=== PATIENT | female | born 1985 | race Caucasian/White ===

== ENCOUNTER 2021-01-29 17:35 | Outpatient (CLI) | payer SELFPAY ==
[~2021-01-29] VITALS: Ht 165.1 cm; Wt 72.0 kg
[2021-01-29 17:45] VITALS: BP 132/73
[2021-01-29] MEDS ORDERED: PRENTAB9 PO (17:59)
[2021-01-29 18:01] VITALS: BP 132/73
[2021-01-29 18:40] VITALS: BP 122/71
[2021-01-29 19:08] LABS: HEMATOCRIT 35.3 % (36.0-47.0); HEMOGLOBIN 12.1 g/dl (12.0-15.5); MEAN CORPUSCULAR HEMOGLOBIN 32.4 pg (27.0-33.0); MEAN CORPUSCULAR HGB CONC 34.3 g/dl (32.0-36.5); MEAN CORPUSCULAR VOLUME 94.4 fl (80.0-96.0); PLATELET COUNT, AUTOMATED 183 10^3/uL (150-450); RED BLOOD COUNT 3.74 10^6/uL (4.00-5.40); WHITE BLOOD COUNT 10.2 10^3/uL (4.0-10.0)
[2021-01-29 19:19] VITALS: BP 123/69
[2021-01-29 19:25] LABS: CREATININE,RANDOM URINE 83.9 MG/DL; TOTAL PROTEIN,RANDOM URINE 12.8 MG/DL (0.0-12.0)
[2021-01-29 20:08] LABS: ALT/SGPT 21 U/L (12-78); BILIRUBIN,TOTAL 0.4 MG/DL (0.2-1.0); BLOOD UREA NITROGEN 10 MG/DL (7-18); CALCIUM LEVEL 8.9 MG/DL (8.5-10.1); CARBON DIOXIDE LEVEL 23 MEQ/L (21-32); CHLORIDE LEVEL 107 MEQ/L (98-107); CREATININE FOR GFR 0.54 MG/DL (0.55-1.30); GLOMERULAR FILTRATION RATE > 60.0 (>60); GLUCOSE, FASTING 86 MG/DL (70-100); LDH LACTATE DEHYDROGENASE 201 U/L (84-246); POTASSIUM SERUM 3.7 MEQ/L (3.5-5.1); SODIUM LEVEL 137 MEQ/L (136-145); TOTAL PROTEIN 6.5 GM/DL (6.4-8.2); URIC ACID 5.3 MG/DL (2.6-6.0)
[2021-01-29 21:01] VITALS: BP 120/62
--- NOTE | 2021-01-30 01:09 | IPNPDOC ---
Obstetrical Progress Note Date of Service Jan 29, 2021 Subjective 36-year-old 114 at 37+0 weeks gestation. Resents from the office after exhibiting high blood pressure during her appointment. . She denies headache, visual changes, right upper quadrant pain, shortness of breath or chest pain. She reports regular movement. . She denies vaginal bleeding, loss of fluid or painful uterine contractions. She reports an occasional pain ful contractions, but mostly Jerry Avery nonpainful.. Of note, she was also noted to have a fetus in the breech presentation. She is interested in an external cephalic version. She has a history of 1 prior low transverse section for nonreassuring heart rate tracing, which was her last . Her previous pregnancies were delivered via . She is [place]. Vital Signs Date Time Temp Pulse Resp B/P (MAP) Pulse Ox O2 Delivery O2 Flow Rate FiO2 01/29/21 21:01 85 120/62 (81) 01/29/21 19:19 99.1 92 18 123/69 (87) 01/29/21 18:40 93 122/71 (88) 01/29/21 18:01 99.3 82 18 132/73 (92) 01/29/21 17:45 132/73 (92) Laboratory Tests 01/29/21 18:22: Urine Random Creatinine 83.9, Urine Random Total Protein 12.8H 01/29/21 18:32: White Blood Count 10.2H, Red Blood Count 3.74L, Hemoglobin 12.1, Hematocrit 35.3L, Mean Corpuscular Volume 94.4, Mean Corpuscular Hemoglobin 32.4, Mean Corpuscular Hemoglobin Concent 34.3, Red Cell Distribution Width 13.9, Platelet Count 183, Nucleated Red Blood Cells % (auto) 0.0, Sodium Level 137, Potassium Level 3.7, Chloride Level 107, Carbon Dioxide Level 23, Anion Gap 7L, Blood Urea Nitrogen 10, Creatinine 0.54L, Glomerular Filtration Rate > 60.0, Fasting Glucose 86, Uric Acid 5.3, Calcium Level 8.9, Total Bilirubin 0.4, Aspartate Amino Transf (AST/SGOT) 19, Alanine Aminotransferase (ALT/SGPT) 21, Alkaline Phosphatase 158H, Lactate Dehydrogenase 201, Total Protein 6.5, Albumin 3.0L, Albumin/Globulin Ratio 0.9L EFM: Cat I / Reactive [place]: irregular contractions. US,[place]: breech, MVP 5.6cm. A/P: 36-year-old G6, P4 at 37+0 weeks who does not yet meet criteria for gestational hypertension/preeclampsia. Maternal / status is reassuring. Several serial blood pressures were normotensive and she is asymptomatic. Given that she has a baby in the breech presentation, an external cephalic version was offered. The risks, benefits, indications and alternatives have been reviewed with the patient and her . However the labor and delivery unit is too busy to perform this elective procedure and she would rather return in the near future than wait. She was scheduled for is 02/01/[address] Kaur. Third trimester precautions were reviewed; preeclampsia precautions were highlighted during counseling. Marlin Doan DO Objective Vital Signs Date Time Temp Pulse Resp B/P (MAP) Pulse Ox O2 Delivery O2 Flow Rate FiO2 01/29/21 21:01 85 120/62 (81) 01/29/21 19:19 99.1 18 FLORESITA DOAN DO Jan 30, 2021 01:09
== END 2021-01-29 21:30 | disposition home or self-care (01) ==
LOC: M LDO 17:35
PROVIDERS: ATTEND Obstetrics & Gynecology
DX: O26.893 Other specified pregnancy related conditions, third trimester (principal); R03.0 Elevated blood-pressure reading, without diagnosis of hypertension; Z3A.37 37 weeks gestation of pregnancy; O32.1XX0 Maternal care for breech presentation, not applicable or unspecified; O34.211 Maternal care for low transverse scar from previous cesarean delivery; Z91.018 Allergy to other foods
CPT/HCPCS: 59025; 80053; 82570; 83615; 84156; 84550; 85027; G0378; G0463

== ENCOUNTER → 2021-01-29 | Outpatient (CLI) | payer SELFPAY ==
[~2021-01-29] MED LIST: PRENTAB9 PO
--- NOTE | 2021-01-29 14:45 | REP ---
INDICATION: EVID OF HYDROCEPHALUS BY OFFICE U/S/NO CARE. COMPARISON: None. TECHNIQUE: Real-time sonographic evaluation of the gravid uterus performed. FINDINGS: Estimated gestational age is37 weeks 0 days, EDC 02/19/2021. Today's measurements indicate appropriate growth. Presentation: Breech Placenta anterior, grade 2, without evidence of placenta previa. heart rate is recorded at 121 beats per minute. Amniotic fluid is subjectively normal. CALOS 16.5, normal range 7.5-24.4. Closed cervical length is measured at 3.6 cm. Biometry chart: BPD: 92 mm, 37 weeks 3 days, 56th percentile. HC: 330 mm, 37 weeks 4 days, 60th percentile AC: 328 mm, 36 weeks 5 days, 46th percentile Femur length: 68 mm, 35 weeks 1 days, 22nd percentile HC to AC ratio: 1.01, normal range 0.91-1.10. Estimated weight: 2957g, 43rd percentile. anatomy: The ventricular system appears mildly dilated, the lateral ventricles have a diameter between 11 and 13 mm, compatible with mild hydrocephalus. Posterior fossa is not well visualized. Evaluation of facial structures limited, but bilateral cleft lip is suspected. Four-chamber heart and left ventricular outflow tracts are visualized and are grossly unremarkable, right ventricular outflow tract is not well visualized. The stomach, kidneys, bladder and spine are grossly unremarkable. IMPRESSION: Viable single intrauterine gestation as above. Mild hydrocephalus. Evaluation of facial structures is limited, but bilateral cleft lip is suspected. <Electronically signed by Theo Jimenes > 01/29/21 [id number]
== END ==
LOC: M WHC 12:24
PROVIDERS: ATTEND Obstetrics & Gynecology
DX: Z34.83 Encounter for supervision of other normal pregnancy, third trimester (principal)

== ENCOUNTER 2021-02-05 10:07 | Inpatient (IN) | payer SELFPAY ==
[~2021-02-05] VITALS: Ht 162.6 cm; Wt 72.2 kg
[2021-02-05 10:39] VITALS: BP 127/81
[2021-02-05] MEDS ORDERED: LR 1,000 ML IV SCH ×2 (11:00→14:45)
[2021-02-05] MEDS ORDERED: TERBUTALINE SULFATE 1 MG/ML VIAL (J3105) SC STA (11:43)
[2021-02-05 11:47] LABS: HEMATOCRIT 34.8 % (36.0-47.0); HEMOGLOBIN 12.2 g/dl (12.0-15.5); MEAN CORPUSCULAR HEMOGLOBIN 32.4 pg (27.0-33.0); MEAN CORPUSCULAR HGB CONC 35.1 g/dl (32.0-36.5); MEAN CORPUSCULAR VOLUME 92.6 fl (80.0-96.0); PLATELET COUNT, AUTOMATED 194 10^3/uL (150-450); RED BLOOD COUNT 3.76 10^6/uL (4.00-5.40); WHITE BLOOD COUNT 9.7 10^3/uL (4.0-10.0)
[2021-02-05 12:02] VITALS: BP 131/85
[2021-02-05] MEDS ORDERED: ceFAZolin SOD 2 GM in IV 1 EA IV ONE (12:45)
[2021-02-05] MEDS ORDERED: BICITRA 30ML SOLN UDC PO ONE (12:45)
[2021-02-05] MEDS ORDERED: MORPHINE PRES-FREE INJ 10 MG/10 ML VIAL (J2274) As Ordered ONE (12:54)
[2021-02-05] MEDS ORDERED: OXYTOCIN INJ 10 UNITS/ML VIAL (J2590) As Ordered ONE (12:57)
[2021-02-05] MEDS ORDERED: OXYTOCIN 30 UNITS IN 0.9% NaCl 500ML IV BAG (J2590) As Ordered ONE ×2 (12:57→14:52)
[2021-02-05] MEDS ORDERED: ONDANSETRON 4MG/2ML VIAL As Ordered ONE (13:05)
[2021-02-05] MEDS ORDERED: KETOROLAC 60MG 2ML VIAL As Ordered ONE (13:05)
[2021-02-05] MEDS ORDERED: dexameTHASONE 4 MG/ML 1ML VIAL (J1100 PER 1MG) As Ordered ONE (13:05)
--- NOTE | 2021-02-05 13:20 | ROOPDOC ---
[facility] Report Of Operation Report of Operation DATE OF PROCEDURE: 02/05/21 ANGELA WHELAN MD. Feb 05, 2021 13:20
--- NOTE | 2021-02-05 13:20 | HPEPDOC ---
Obstetrical History & Physical General Date of Admission Feb 05, 2021 at 11:02 History of Present Illness Mrs Hamm is a 36yo at 38 weeks 0 days estimated gestational age here with breech presentation and gestational hypertension. Patient is of [place] descent and has had minimal care. She has been diagnosed with g estational hypertension based on mild range blood pressures over the course of several weeks. This is also complicated by fetus with bilateral cleft lip and mild hydrocephalus. 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 Sex of Infant: Male Complications: No Past Obstetrical History #2: Date of Delivery: Oct 09, 2015 Type of Delivery: Spontaneous Vaginal Del. Sex of Infant: Female Past Obstetrical History #3: Date of Delivery: Jan 28, 2017 Type of Delivery: Spontaneous Vaginal Del. 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 BREAST: . ABDOMEN: Gravid and non-tender to touch. FETUS: Is vertex (VTX) by sterile vaginal examination (SVE), fetus is vertex (VTX) by [place]. HEART RATE: Regular rate and rhythm. LUNGS: Clear to auscultation (CTA). Vital Signs/I&O Vital Signs Date Time Temp Pulse Resp B/P (MAP) Pulse Ox O2 Delivery O2 Flow Rate FiO2 02/05/21 10:39 98.0 Laboratory Data 24H LABS Laboratory Tests 2 02/05/21 11:30: Nucleated Red Blood Cells % (auto) 0.0, Syphilis Serology NONREACTIVE CBC/BMP Laboratory Tests 02/05/21 11:30 Pertinent Laboratoy Data Blood Type: O+ RBC Antibody Screen: Negative Anatomy Ultrasound Placenta Location: Anterior Vaginal Examination Presentation: Breech presentation Assessment Variability: Moderate Tocometer Contractions: No Assessment/Plan Assessment 36-year-old 6 para 4 at 38 weeks 0 days estimated gestational age with gestational hypertension Breech presentation Plan Admit and orient. 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 Patient has been thoroughly counseled regards to her diagnosis of gestational hypertension as well as breech presentation. I discussed external cephalic version versus a repeat section risks of both procedures and after consultation patient desires to proceed with external cephalic version. If unsuccessful will plan to proceed with section ANGELA WHELAN MD. Feb 05, 2021 13:19
[2021-02-05] MEDS ORDERED: METOCLOPRAMIDE INJ 10MG/2ML VIAL (J2765 PER 1) IV PRN (13:22)
[2021-02-05] MEDS ORDERED: NALBUPHINE HCL 10 MG/ML AMP (J2300) IV PRN (13:22)
[2021-02-05] MEDS ORDERED: ONDANSETRON 4MG/2ML VIAL IV PRN ×3 (13:22→14:45)
[2021-02-05] MEDS ORDERED: NALOXONE INJ 0.4MG/1ML VIAL (J2310 PER 1MG) IV PRN ×2 (13:22)
[2021-02-05] MEDS ORDERED: diphenhydrAMINE 50MG/ML VIAL (J1200) IV PRN (13:22)
--- NOTE | 2021-02-05 13:22 | ROOPDOC ---
[facility] Report Of Operation Report of Operation DATE OF PROCEDURE: 02/05/21 SURGEON: Tori Kaur M.D. CEMENT CONVEYOR OPERATOR: None PROCEDURE: Repeat section PREOPERATIVE DIAGNOSIS: 1. History of prior section 2. Breech 3. Gestational hypertension POSTOPERATIVE DIAGNOSIS: 1. History of prior section 2. Breech 3. Gestational hypertension ANESTHESIA: Spinal ESTIMATED BLOOD LOSS: 700 mL URINE OUTPUT: 100 mL INTRAVENOUS FLUIDS: 1000 mL of lactated Ringer's solution PREOPERATIVE ANTIBIOTICS:. 2 g of Ancef OPERATIVE FINDINGS: Liveborn female infant, Apgars 8 and 9. Weight 2050 g or 6 lbs. 5 oz. 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 The patient was brought to the operating room where spinal anesthesia was placed. She was then placed in the supine position with a left lateral tilt. Carver catheter was placed and to gravity. Patient was then prepped and draped in the normal sterile fashion. A timeout operating room was performed identifying the patient, procedure be performed as well as drug allergies. Anesthesia was tested and deemed to be adequate. Pfannenstiel skin incision was made and this was carried down to the underlying rectus fascia. The fascia was then scored and this incision was extended bilaterally. The fascia was then dissected off the underlying rectus muscle superiorly and inferiorly. The rectus muscles were then in the midline. The peritoneum is then entered. Vesicouterine peritoneum was then tented and excised and a bladder flap was created. Mobius retractor was then placed. Next, a curvilinear incision was then made in the lower uterine segment. Amniotomy was performed, productive, clear fluid. Lower extremities delivered through the uterine incision followed by corpus, shoulders and upper extremities. Head was then delivered with umbilical cord. The cord was clamped x2. The infant was brought over to the warmer with a good cry. Placenta was drained and delivered grossly intact. The uterus was cleared of all clots and debris and the uterine incision was then closed using 0 Vicryl in a running locking fashion followed by a second layer of 0 Vicryl in a running nonlocking fashion for imbrication. The abdomen suctioned. Surgical sites reinspected and noted be hemostatic. The retractor was then removed. The anterior peritoneum was then reapproximated with 3-0 Vicryl. The rectus muscles were reapproximated 3-0 Vicryl. The fascia was then closed using 0 Vicryl in a running nonlocking fashion. The subcutaneous tissues was then irrigated and suctioned. Subcutaneous tissue was reapproximated using 3-0 Vicryl. Several subdermal stitch is placed using 3-0 Vicryl and the skin was closed with 4-0 Monocryl and subcuticular fashion. This incision was then cleaned and dried and was dressed. The patient was then taken to recovery in stable condition. All counts were correct. TORI KAUR MD. Feb 05, 2021 13:22
[2021-02-05] MEDS ORDERED: ePHEDrine SULFATE 25 MG/5 ML(5MG/ML) SYRINGE As Ordered ONE (13:25)
[2021-02-05] MEDS ORDERED: RHOGAM 300 MCG (1500 IU) INJ (J2790) IM SCH (13:30)
[2021-02-05] MEDS ORDERED: MOM 30ML SUSPENSION UDC PO PRN (13:30)
[2021-02-05] MEDS ORDERED: PERCOCET 5MG/325MG TAB PO PRN ×2 (13:30)
[2021-02-05] MEDS ORDERED: SIMETHICONE 80MG CHEW TAB PO PRN (13:30)
[2021-02-05] MEDS ORDERED: MEASLES,MUMPS,RUBELLA VACCINE INJ (MMR-II) (90707) SC SCH (13:30)
[2021-02-05] MEDS ORDERED: OXYTOCIN DRIP 30 UNITS in IV 1 EA IV SCH (13:30)
[2021-02-05 13:36] LABS: BASO % 0.3 % (0.0-1.0); EOS # 0.1 10^3/uL (0.0-0.5); EOS % 1.1 % (0.0-3.0); LYMPH # 1.6 10^3/uL (1.5-5.0); MONO # 0.6 10^3/uL (0.0-0.8); MONO % 5.6 % (2.0-8.0); NEUTROPHILS # 7.5 10^3/uL (1.5-8.5); NEUTROPHILS % 76.2 % (36.0-66.0)
[2021-02-05 14:23] LABS: HEPATITIS C VIRUS ABY INDEX < 0.0 INDEX (<0.8); HIV 1&2 SCREEN CENTAUR NEGATIVE (NEGATIVE)
[2021-02-05] MEDS ORDERED: oxyCODONE 5MG TAB PO PRN (14:45)
[2021-02-05] MEDS ORDERED: fentaNYL 100 MCG/2 ML INJECTION (J3010) IV PRN (14:45)
[2021-02-05 16:40] VITALS: BP 132/71
[2021-02-05 17:10] VITALS: BP 133/71
[2021-02-05] MEDS: LR 1,000 ML IV SCH ×2 (20:21→22:00)
[2021-02-05] MEDS: KETOROLAC 30 MG/ML 1ML VIAL IV SCH (20:21)
[2021-02-05] MEDS: DOCUSATE SODIUM 100MG CAPSULE PO SCH (20:21)
[2021-02-05 22:00] VITALS: BP 124/72
[2021-02-06 02:00] VITALS: BP 104/60
[2021-02-06] MEDS: KETOROLAC 30 MG/ML 1ML VIAL IV SCH ×2 (02:11→08:10)
[2021-02-06 06:00] VITALS: BP 118/75
[2021-02-06 07:30] LABS: HEMATOCRIT 37.5 % (36.0-47.0); HEMOGLOBIN 12.9 g/dl (12.0-15.5); MEAN CORPUSCULAR HEMOGLOBIN 31.9 pg (27.0-33.0); MEAN CORPUSCULAR HGB CONC 34.4 g/dl (32.0-36.5); MEAN CORPUSCULAR VOLUME 92.8 fl (80.0-96.0); PLATELET COUNT, AUTOMATED 186 10^3/uL (150-450); RED BLOOD COUNT 4.04 10^6/uL (4.00-5.40); WHITE BLOOD COUNT 13.7 10^3/uL (4.0-10.0)
[2021-02-06] MEDS ORDERED: PERCOCET PO (07:46)
[2021-02-06] MEDS ORDERED: IBUP80TA PO (07:46)
[2021-02-06] MEDS: DOCUSATE SODIUM 100MG CAPSULE PO SCH (08:08)
[2021-02-06] MEDS ORDERED: PRENATAL VITAMINS CHEWABLE TABLET PO SCH (09:00)
[2021-02-06 09:51] VITALS: BP 125/66
[2021-02-06] MEDS ORDERED: IBUPROFEN 800 MG TAB PO SCH (16:10)
== END 2021-02-06 15:00 | disposition home or self-care (01) | DRG 540 ==
LOC: M LDO 10:07 → M LDI 11:02 → M OBS 16:22
PROVIDERS: ADMIT Obstetrics & Gynecology; ATTEND Obstetrics & Gynecology
PROC: 10D00Z1 Extraction of Products of Conception, Low, Open Approach (ICD-10-PCS; principal; 2021-02-05 12:56)
DX: O32.1XX0 Maternal care for breech presentation, not applicable or unspecified (principal); Z37.0 Single live birth; O13.4 Gestational [pregnancy-induced] hypertension without significant proteinuria, complicating childbirth; Z3A.38 38 weeks gestation of pregnancy; O34.211 Maternal care for low transverse scar from previous cesarean delivery